=== PATIENT | female | born 1960 | race Caucasian/White ===

== ENCOUNTER 2017-10-26 13:39 | Day surgery (SDC) | payer OTHER ==
[2017-10-26 14:06] VITALS: BMI 23.4
--- NOTE | 2017-10-26 14:18 | PROC ---
Endoscopy Procedure Endoscopy procedure completed. Please see scanned procedure report.
[2017-10-26 14:50] VITALS: TEMP 97.7
[2017-10-26 16:08] VITALS: BP 105/59; PULSE 61
== END 2017-10-26 18:12 | disposition home or self-care (01) ==
LOC: JASU-ENDO 13:39
PROVIDERS: ATTEND Internal Medicine Gastroenterology
PROC: 0DJD8ZZ Inspection of Lower Intestinal Tract, Via Natural or Artificial Opening Endoscopic (ICD-10-PCS; principal; 2017-10-26 14:15)
DX: Z12.11 Encounter for screening for malignant neoplasm of colon (principal); K64.8 Other hemorrhoids